=== PATIENT | female | born 1970 | race Native Hawaiian/Other Pacific Islander ===

== ENCOUNTER 2016-09-18 09:06 | Outpatient (CLI) | payer OTHER | END 2016-09-18 10:30 | disposition home or self-care (01) | LOC: MAMMO 09:06 | DX: Z12.31 Encounter for screening mammogram for malignant neoplasm of breast (principal) | CPT/HCPCS: G0202-TC ==

== ENCOUNTER 2016-10-14 06:24 | Emergency (ER) | payer OTHER ==
[~2016-10-14] VITALS: Ht 165.1 cm; Wt 113.4 kg
[2016-10-14] MEDS ORDERED: CLIN300C PO (06:34)
[2016-10-14 08:21] VITALS: BP 130/71; TEMP 98.1
== END 2016-10-14 08:36 | disposition home or self-care (01) ==
LOC: ED 06:24
DX: K04.6 Periapical abscess with sinus (principal); R68.84 Jaw pain
CPT/HCPCS: 96374; 96375; 99283; J0696; J1100; J1885

== ENCOUNTER 2017-03-28 11:02 | Outpatient (CLI) | payer BC ==
[~2017-03-28 11:02] MED LIST: CLIN300C PO
== END 2017-03-28 12:05 | disposition home or self-care (01) ==
LOC: RAD 11:02
DX: M79.671 Pain in right foot (principal)